=== PATIENT | female | born 1990 | race Caucasian/White ===

== ENCOUNTER 2018-06-28 16:38 | Outpatient (CLI) | payer OTHER ==
[2018-06-28 17:18] LABS: APPEARANCE,URINE CLEAR; BILIRUBIN,URINE NEGATIVE (NEGATIVE); COLOR,URINE YELLOW; GLUCOSE, URINE NEGATIVE (NEGATIVE); KETONES,URINE 20 mg/dL (NEGATIVE); LEUKOCYTE ESTERASE,URINE NEGATIVE (NEGATIVE); NITRITE,URINE NEGATIVE (NEGATIVE); PROTEIN,URINE NEGATIVE (NEGATIVE); URINE SPECIFIC GRAVITY 1.018; UROBILINOGEN,URINE NEGATIVE mg/dL (<2.0)
[2018-06-28 17:34] LABS: URINE AMPHETAMINES SCREEN NEGATIVE; URINE BARBITURATES SCREEN NEGATIVE; URINE BENZODIAZEPINES SCREEN NEGATIVE; URINE COCAINE SCREEN NEGATIVE; URINE MARIJUANA (THC) SCREEN NEGATIVE; URINE METHADONE SCREEN NEGATIVE; URINE PHENCYCLIDINE SCREEN NEGATIVE
--- NOTE | 2018-06-28 18:45 | Non Stress Test Report ---
Non Stress Test Datetime Report Generated by CPN: 06/28/2018 18:44 DEMOGRAPHIC EGA NST: 35.0 INDICATION Indication for Study: Other Indication for Study (NST) Other: LABOR CHECK MONITORING Monitor Explained: Monitor Explained; Test Explained; Patient Verbalized Understanding Time on Monitor: 06/28/2018 16:57 Time off Monitor: 06/28/2018 18:04 NST Duration: 67 NST INTERVENTIONS NST Interventions: PO Hydration; Reposition Patient BABY A: [id number] BABY A Movement : Present Contraction Frequency : irregular FHR Baseline : 145 Accelerations : 15X15 Decelerations : None Variability : Moderate 6-25bpm NST Review: Meets Criteria for Reactive NST NST Review and Verified By : JANIE Gorman Results: Reactive NST REPORT Report Trigger: Send Report
== END 2018-06-28 18:16 | disposition home or self-care (01) ==
LOC: LC 16:38
PROVIDERS: ATTEND Obstetrics & Gynecology
PROC: 4A1HXCZ Monitoring of Products of Conception, Cardiac Rate, External Approach (ICD-10-PCS; principal; 2018-06-28)
DX: Z36.89 Encounter for other specified antenatal screening (principal)
CPT/HCPCS: 59025; 80307; 81001; 84112

== ENCOUNTER 2018-07-01 16:47 | Outpatient (CLI) | payer OTHER ==
[2018-07-01 17:40] LABS: ABSOLUTE BASOPHILS # (AUTO) 0.1 10^3/uL (0.0-0.2); ABSOLUTE EOSINOPHILS # (AUTO) 0.1 10^3/uL (0.0-0.6); ABSOLUTE LYMPHOCYTES (AUTO) 1.6 10^3/uL (0.5-4.7); ABSOLUTE MONOCYTES (AUTO) 1.1 10^3/uL (0.1-1.4); ABSOLUTE NEUT (AUTO) 8.4 10^3/uL (1.7-8.2); BASOPHILS % (AUTO) 0.5 % (0-2); EOSINOPHILS % (AUTO) 0.6 % (0-6); HEMATOCRIT 29.1 % (36.0-47.0); HEMOGLOBIN 9.6 g/dL (12.0-15.5); LYMPHOCYTES % (AUTO) 14.7 % (13-45); MEAN CORPUSCULAR HEMOGLOBIN 25.3 pg (27.0-33.4); MEAN CORPUSCULAR HGB CONC 32.8 g/dL (32.0-36.0); MEAN CORPUSCULAR VOLUME 77 fl (80-97); MONOCYTES % (AUTO) 9.4 % (3-13); PLATELET COUNT 250 10^3/uL (150-450); RED BLOOD COUNT 3.78 10^6/uL (3.72-5.28); RED CELL DISTRIBUTION WIDTH 16.7 % (11.5-14.0); SEGMENTED NEUTROPHILS % (AUTO) 74.8 % (42-78); TOTAL CELLS COUNTED % (AUTO) 100 %; WHITE BLOOD COUNT 11.2 10^3/uL (4.0-10.5)
[2018-07-01 17:46] LABS: APPEARANCE,URINE CLEAR; BILIRUBIN,URINE NEGATIVE (NEGATIVE); COLOR,URINE YELLOW; GLUCOSE, URINE NEGATIVE (NEGATIVE); KETONES,URINE TRACE mg/dL (NEGATIVE); LEUKOCYTE ESTERASE,URINE NEGATIVE (NEGATIVE); NITRITE,URINE NEGATIVE (NEGATIVE); PROTEIN,URINE NEGATIVE (NEGATIVE); URINE SPECIFIC GRAVITY 1.015; UROBILINOGEN,URINE NEGATIVE mg/dL (<2.0)
[2018-07-01 17:54] LABS: ALANINE AMINOTRANSFERASE 28 U/L (9-52); ALBUMIN 3.6 g/dL (3.5-5.0); ALKALINE PHOSPHATASE 175 U/L (38-126); ANION GAP 10 (5-19); ASPARTATE AMINO TRANSFERASE 22 U/L (14-36); BILIRUBIN,DIRECT 0.1 mg/dL (0.0-0.4); BILIRUBIN,TOTAL 0.4 mg/dL (0.2-1.3); BLOOD UREA NITROGEN 10 mg/dL (7-20); CARBON DIOXIDE 19 mmol/L (22-30); CHLORIDE 108 mmol/L (98-107); GLUCOSE 72 mg/dL (75-110); POTASSIUM 3.9 mmol/L (3.6-5.0); SODIUM 136.7 mmol/L (137-145); TOTAL PROTEIN 6.7 g/dL (6.3-8.2); URIC ACID 3.7 mg/dL (2.5-6.2)
[2018-07-01 17:56] LABS: URINE AMPHETAMINES SCREEN NEGATIVE; URINE BARBITURATES SCREEN NEGATIVE; URINE BENZODIAZEPINES SCREEN NEGATIVE; URINE COCAINE SCREEN NEGATIVE; URINE MARIJUANA (THC) SCREEN NEGATIVE; URINE METHADONE SCREEN NEGATIVE; URINE PHENCYCLIDINE SCREEN NEGATIVE
[2018-07-01 18:00] LABS: UR PRO/CREAT RATIO RESULT 0.1 mg/mg (0.0-0.2); URINE CREATININE 81.5 mg/dL (16-327); URINE PROTEIN 11.1 mg/dL (<12)
--- NOTE | 2018-07-01 18:50 | Non Stress Test Report ---
Non Stress Test Datetime Report Generated by CPN: 07/01/2018 18:50 DEMOGRAPHIC EGA NST: 35.3 INDICATION Indication for Study: Ordered by Provider Indication for Study (NST) Other: lc for pih work up MONITORING Monitor Explained: Monitor Explained; Test Explained; Patient Verbalized Understanding Time on Monitor: 07/01/2018 17:00 Time off Monitor: 07/01/2018 18:30 NST Duration: 90 NST INTERVENTIONS NST Interventions: PO Hydration; Reposition Patient Physician Notified NST: Dr Younger BABY A: [id number] BABY A Movement : Present Contraction Frequency : rare FHR Baseline : 140 Accelerations : 15X15 Decelerations : None Variability : Moderate 6-25bpm NST Review: Meets Criteria for Reactive NST NST Review and Verified By : Suellen Bellavance RN NST Results: Reactive NST REPORT Report Trigger: Send Report
== END 2018-07-01 18:49 | disposition home or self-care (01) ==
LOC: LC 16:47
PROVIDERS: ATTEND Obstetrics & Gynecology
PROC: 4A1HXCZ Monitoring of Products of Conception, Cardiac Rate, External Approach (ICD-10-PCS; principal; 2018-07-01)
DX: O16.3 Unspecified maternal hypertension, third trimester (principal); Z3A.35 35 weeks gestation of pregnancy
CPT/HCPCS: 36415; 59025; 80053; 80307; 81001; 82570; 83615; 84156; 84550; 85025

== ENCOUNTER 2018-07-30 14:22 | Outpatient (CLI) | payer OTHER ==
[2018-07-30] MEDS ORDERED: ACETAMINOPHEN SOLN 325 MG/10.15 ML UDCUP PO ONE (14:50)
[2018-07-30] MEDS ORDERED: ACETAMINOPHEN 325 MG TABLET ONE (14:59)
[2018-07-30 15:14] LABS: APPEARANCE,URINE SLIGHTLY-CLOUDY; BILIRUBIN,URINE NEGATIVE (NEGATIVE); COLOR,URINE YELLOW; GLUCOSE, URINE NEGATIVE (NEGATIVE); KETONES,URINE NEGATIVE (NEGATIVE); LEUKOCYTE ESTERASE,URINE SMALL (NEGATIVE); NITRITE,URINE NEGATIVE (NEGATIVE); PROTEIN,URINE NEGATIVE (NEGATIVE); URINE SPECIFIC GRAVITY 1.017; UROBILINOGEN,URINE NEGATIVE mg/dL (<2.0)
[2018-07-30 15:33] LABS: ABSOLUTE EOSINOPHILS # (AUTO) 0.1 10^3/uL (0.0-0.6); ABSOLUTE LYMPHOCYTES (AUTO) 1.3 10^3/uL (0.5-4.7); ABSOLUTE MONOCYTES (AUTO) 0.8 10^3/uL (0.1-1.4); ABSOLUTE NEUT (AUTO) 6.6 10^3/uL (1.7-8.2); BASOPHILS % (AUTO) 0.3 % (0-2); EOSINOPHILS % (AUTO) 0.8 % (0-6); HEMATOCRIT 29.2 % (36.0-47.0); HEMOGLOBIN 9.7 g/dL (12.0-15.5); LYMPHOCYTES % (AUTO) 14.2 % (13-45); MEAN CORPUSCULAR HEMOGLOBIN 24.4 pg (27.0-33.4); MEAN CORPUSCULAR HGB CONC 33.1 g/dL (32.0-36.0); MEAN CORPUSCULAR VOLUME 74 fl (80-97); MONOCYTES % (AUTO) 9.2 % (3-13); PLATELET COUNT 217 10^3/uL (150-450); RED BLOOD COUNT 3.95 10^6/uL (3.72-5.28); RED CELL DISTRIBUTION WIDTH 17.7 % (11.5-14.0); SEGMENTED NEUTROPHILS % (AUTO) 75.5 % (42-78); TOTAL CELLS COUNTED % (AUTO) 100 %; WHITE BLOOD COUNT 8.8 10^3/uL (4.0-10.5)
[2018-07-30 15:34] LABS: URINE AMPHETAMINES SCREEN NEGATIVE; URINE BARBITURATES SCREEN NEGATIVE; URINE BENZODIAZEPINES SCREEN NEGATIVE; URINE COCAINE SCREEN NEGATIVE; URINE MARIJUANA (THC) SCREEN NEGATIVE; URINE METHADONE SCREEN NEGATIVE; URINE PHENCYCLIDINE SCREEN NEGATIVE
[2018-07-30 15:38] LABS: UR PRO/CREAT RATIO RESULT 0.2 mg/mg (0.0-0.2); URINE CREATININE 103.3 mg/dL (16-327); URINE PROTEIN 16.6 mg/dL (<12)
[2018-07-30 15:54] LABS: ALANINE AMINOTRANSFERASE 18 U/L (9-52); ALBUMIN 3.2 g/dL (3.5-5.0); ALKALINE PHOSPHATASE 228 U/L (38-126); ANION GAP 6 (5-19); ASPARTATE AMINO TRANSFERASE 17 U/L (14-36); BILIRUBIN,DIRECT 0.2 mg/dL (0.0-0.4); BILIRUBIN,TOTAL 0.4 mg/dL (0.2-1.3); BLOOD UREA NITROGEN 11 mg/dL (7-20); CALCIUM 9.6 mg/dL (8.4-10.2); CARBON DIOXIDE 22 mmol/L (22-30); CHLORIDE 108 mmol/L (98-107); GLUCOSE 75 mg/dL (75-110); SODIUM 136.4 mmol/L (137-145); TOTAL PROTEIN 6.4 g/dL (6.3-8.2); URIC ACID 4.6 mg/dL (2.5-6.2)
== END 2018-07-30 16:50 | disposition home or self-care (01) ==
LOC: LC 14:22
PROVIDERS: ATTEND Obstetrics & Gynecology
PROC: 4A1HXCZ Monitoring of Products of Conception, Cardiac Rate, External Approach (ICD-10-PCS; principal; 2018-07-30)
DX: O14.90 Unspecified pre-eclampsia, unspecified trimester (principal); Z3A.39 39 weeks gestation of pregnancy
CPT/HCPCS: 36415; 59025; 80053; 80307; 81005; 82570; 83615; 84156; 84550; 85025; 86592; 86850; 86900; 86901

== ENCOUNTER 2018-08-01 07:56 | Outpatient (CLI) | payer OTHER ==
--- NOTE | 2018-08-01 07:58 | Non Stress Test Report ---
Non Stress Test Datetime Report Generated by CPN: 08/01/2018 07:58 DEMOGRAPHIC EGA NST: 39.4 INDICATION Indication for Study: Ordered by Provider Indication for Study (NST) Other: pre eclampsia work up MONITORING Monitor Explained: Monitor Explained; Test Explained; Patient Verbalized Understanding Time on Monitor: 07/30/2018 14:13 Time off Monitor: 07/30/2018 16:12 NST Duration: 119 NST INTERVENTIONS NST Interventions: PO Hydration; Reposition Patient Physician Notified NST: A Deshpande CNM BABY A: [id number] Movement : Present Contraction Frequency : irr FHR Baseline : 135 Accelerations : 15X15 Decelerations : None Variability : Moderate 6-25bpm NST Review: Meets Criteria for Reactive NST NST Review and Verified By : JANIE Felix Results: Reactive NST REPORT Report Trigger: Send Report
--- NOTE | 2018-08-01 09:51 | Non Stress Test Report ---
Non Stress Test Datetime Report Generated by CPN: 08/01/2018 09:50 DEMOGRAPHIC EGA NST: 39.6 INDICATION Indication for Study: Other Indication for Study (NST) Other: lc VITAL SIGNS Temperature - NST: 97.6 RESP - NST: 16 MONITORING Monitor Explained: Monitor Explained; Test Explained; Patient Verbalized Understanding Time on Monitor: 08/01/2018 08:15 Time off Monitor: 08/01/2018 09:48 NST Duration: 93 NST INTERVENTIONS Physician Notified NST: Dr Shabbir BABY A Movement : Present Contraction Frequency : irreg FHR Baseline : 140 Accelerations : 15X15 Decelerations : None Variability : Moderate 6-25bpm NST Review: Meets Criteria for Reactive NST NST Review and Verified By : Suellen Chambers RN NST Results: Reactive NST REPORT Report Trigger: Send Report
[2018-08-01 10:11] LABS: URINE PROTEIN 13.4 mg/dL (<12)
[2018-08-01 10:15] LABS: 24 HOUR URINE PROTEIN RESULT 289 mg/day (42-225)
== END 2018-08-01 10:29 | disposition home or self-care (01) ==
LOC: LC 07:56
PROVIDERS: ATTEND Obstetrics & Gynecology
PROC: 4A1HXCZ Monitoring of Products of Conception, Cardiac Rate, External Approach (ICD-10-PCS; principal; 2018-08-01)
DX: O47.1 False labor at or after 37 completed weeks of gestation (principal); Z3A.39 39 weeks gestation of pregnancy
CPT/HCPCS: 59025; 84156

== ENCOUNTER 2018-08-03 19:59 | Inpatient (IN) | payer OTHER ==
[2018-08-03] MEDS ORDERED: ZOLPIDEM TARTRATE 5 MG TABLET PO PRN (20:24)
[2018-08-03] MEDS ORDERED: RINGERS SOLUTION,LACTATED 300 ML IV ONE (20:24)
[2018-08-03] MEDS ORDERED: MAG HYDROX/AL HYDROX/SIMETH SUSP 30 ML UDCUP PO PRN (20:24)
[2018-08-03] MEDS ORDERED: ACETAMINOPHEN 325 MG TABLET PO PRN (20:24)
[2018-08-03] MEDS ORDERED: DINOPROSTONE 10 MG VAGINAL INSERT.SR PV ONE (20:24)
[2018-08-03 21:06] LABS: ABSOLUTE EOSINOPHILS # (AUTO) 0.1 10^3/uL (0.0-0.6); ABSOLUTE LYMPHOCYTES (AUTO) 1.5 10^3/uL (0.5-4.7); ABSOLUTE NEUT (AUTO) 8.8 10^3/uL (1.7-8.2); BASOPHILS % (AUTO) 0.4 % (0-2); EOSINOPHILS % (AUTO) 0.9 % (0-6); HEMATOCRIT 29.1 % (36.0-47.0); HEMOGLOBIN 9.6 g/dL (12.0-15.5); LYMPHOCYTES % (AUTO) 12.8 % (13-45); MEAN CORPUSCULAR HEMOGLOBIN 24.5 pg (27.0-33.4); MEAN CORPUSCULAR VOLUME 74 fl (80-97); MONOCYTES % (AUTO) 8.4 % (3-13); PLATELET COUNT 228 10^3/uL (150-450); RED BLOOD COUNT 3.92 10^6/uL (3.72-5.28); RED CELL DISTRIBUTION WIDTH 17.8 % (11.5-14.0); SEGMENTED NEUTROPHILS % (AUTO) 77.5 % (42-78); TOTAL CELLS COUNTED % (AUTO) 100 %; WHITE BLOOD COUNT 11.3 10^3/uL (4.0-10.5)
[2018-08-03 21:07] LABS: APPEARANCE,URINE SLIGHTLY-CLOUDY; BILIRUBIN,URINE NEGATIVE (NEGATIVE); COLOR,URINE YELLOW; GLUCOSE, URINE NEGATIVE (NEGATIVE); KETONES,URINE NEGATIVE (NEGATIVE); LEUKOCYTE ESTERASE,URINE MODERATE (NEGATIVE); NITRITE,URINE NEGATIVE (NEGATIVE); PROTEIN,URINE NEGATIVE (NEGATIVE); URINE SPECIFIC GRAVITY 1.021
[2018-08-03 21:22] LABS: URINE AMPHETAMINES SCREEN NEGATIVE; URINE BARBITURATES SCREEN NEGATIVE; URINE BENZODIAZEPINES SCREEN NEGATIVE; URINE COCAINE SCREEN NEGATIVE; URINE MARIJUANA (THC) SCREEN NEGATIVE; URINE METHADONE SCREEN NEGATIVE; URINE PHENCYCLIDINE SCREEN NEGATIVE
[2018-08-03] MEDS ORDERED: MISOPROSTOL 0.2 MG TABLET ONE (21:42)
[2018-08-03] MEDS ORDERED: OXYTOCIN 10 UNIT/ML VIAL ONE (21:42)
[2018-08-03] MEDS ORDERED: DINOPROSTONE 10 MG VAGINAL INSERT.SR ONE (21:43)
[2018-08-03] MEDS ORDERED: LIDOCAINE 1% INJ-PF (10 MG/ML) 30 ML SDV ONE (21:43)
[2018-08-03] MEDS ORDERED: OXYTOCIN/NORMAL SALINE 20 UNIT/1,000 ML RTUINJ ONE (21:43)
--- NOTE | 2018-08-03 23:04 | Admission Physical ---
Datetime Report Generated by CPN: 08/03/2018 23:04 CURRENT ADMISSION Chief Complaint: Scheduled Induction of Labor Indication for Induction: Post Dates; Gestational HTN Admit Impression : Term, Intrauterine ; Intact Membranes; Induction of Labor Admit Plan: Admit to Unit; Initiate Labor Induction Protocol ALLERGIES Medication Allergies: Yes Medication Allergies: Sulfa (Sulfonamide Antibiotics) (08/03/2018) Latex: No Latex Allergies Food Allergies: N/A Environmental Allergies: N/A OBSTETRICAL HISTORY EDC: 08/02/2018 00:00 : 1 Para: 0 Term: 0 : 0 SAB: 0 IAB: 0 Ectopic: 0 Livin Cesareans: 0 VBACs: 0 Multiple Births: 0 Gestational Diabetes: Yes Rh Sensitization: No Incompetent Cervix: No ZACHERY: No Infertility: No ART Treatment: No Uterine Anomaly: No IUGR: No Hx Previous C/S: No Macrosomia: No Hx Loss/Stillborn: No PIH: No Hx : No Placenta Previa/Abruption: No Depression/PP Depression: No PTL/PROM: No Post Hemorrhage: No Current Procedures: Ultrasound; NST Obstetrical History Comments: G1- current, GDM diet controlled SEE RECORDS Alcohol: No Marijuana : No Cocaine: No Other Illicit Drugs: No Cigarettes: Never Smoker. [id number] MEDICAL HISTORY Diabetes: Yes Diabetes Type: Gestational Diabetes Blood Transfusion: No Pulmonary Disease (Asthma, TB): No Breast Disease: No Hypertension: Yes Retail Loan Officer Surgery: No Heart Disease: No Hosp/Surgery: Yes Autoimmune Disorder: No Anesthetic Complications: No Kidney Disease: Yes Abnormal Pap Smear: No Neuro/Epilepsy: No Psychiatric Disorders: No Other Medical Diseases: No Hepatitis/Liver Disease: No Significant Family History: No Varicosities/Phlebitis: No Trauma/Violence : No Thyroid Dysfunction: No Medical History Comments: Diet controlled GDM, ureters reimplanted at 4 years old, wisdom teeth removed. INFECTIOUS HISTORY Gonorrhea: No Genital Herpes: No Chlamydia: No Tuberculosis: No Syphilis: No Hepatitis: No HIV/AIDS Exposure: No Rash or Viral Illness: No HPV: No PHYSICAL EXAM General: Normal HEENT: Normal Neurologic: Normal Thyroid: Normal Heart: Normal Lungs: Normal Breast: Normal Back: Normal Abdomen: Normal Genitourinary Exam: Normal Extremities: Normal DTRs: Normal Pelvic Type: Adequate Vital Signs: Reviewed; Within Normal Limits VAGINAL EXAM Dilatation: 1 Effacement: 50 Station: -1 Contraction Comments: irregular MEMBRANES Membranes: Intact FETUS A EGA: 40.1 Monitoring: External US FHR- Baseline: 140s Variability: Moderate 6-25bpm Accelerations: 15X15 Decelerations: None FHR Category: Category I Admit Comment: Pt presented to L_D for a scheduled labor induction secondary to GHTN. There is also suspected macrosomia. She is GBS Negative. Cervidil placed at approx 2200. PLANS FOR LABOR AND DELIVERY Labor and Delivery: None Pain Management: Epidural Feeding Preference: Breast Benefit of Breast Feed Discussed: Yes Circumcision: N/A INFORMED CONSENT Signature: with User ID: [email or web address]
[2018-08-04] MEDS ORDERED: MAG HYDROX/AL HYDROX/SIMETH SUSP 30 ML UDCUP ONE ×3 (01:07→23:49)
[2018-08-04] MEDS ORDERED: MAG HYDROX/AL HYDROX/SIMETH SUSP 30 ML UDCUP PO PRN (11:59)
[2018-08-04] MEDS ORDERED: OXYTOCIN/NORMAL SALINE 20 UNIT/1,000 ML RTUINJ IV PRN (13:54)
[2018-08-04] MEDS: RINGERS SOLUTION,LACTATED 1,000 ML IV PRN (17:54)
[2018-08-05] MEDS: RINGERS SOLUTION,LACTATED 1,000 ML IV PRN (07:56)
[2018-08-05 10:27] LABS: HEMATOCRIT 29.5 % (36.0-47.0); HEMOGLOBIN 9.6 g/dL (12.0-15.5); MEAN CORPUSCULAR HGB CONC 32.6 g/dL (32.0-36.0); MEAN CORPUSCULAR VOLUME 74 fl (80-97); PLATELET COUNT 204 10^3/uL (150-450); RED CELL DISTRIBUTION WIDTH 17.8 % (11.5-14.0); WHITE BLOOD COUNT 11.1 10^3/uL (4.0-10.5)
[2018-08-05] MEDS ORDERED: FENTANYL CITRATE INJ/PF 100 MCG/2 ML AMPUL ONE (10:27)
[2018-08-05] MEDS ORDERED: EPHEDRINE SULFATE INJ 50 MG/1 ML AMPULE ONE (10:27)
[2018-08-05] MEDS ORDERED: FENTANYL/BUPIVACAINE/NS/PF 300 MCG/150 ML RTUINJ EPI ONE (10:27)
[2018-08-05] MEDS ORDERED: PHENYLEPHRINE HCL INJ/PF 10 MG/1 ML SDV ONE (10:27)
[2018-08-05] MEDS ORDERED: BUPIVACAINE HCL 0.25 % INJ/PF (2.5 MG/1 ML) 30 ML VIAL ONE (10:28)
[2018-08-05] MEDS ORDERED: LIDOCAINE 1.5%/EPINEPHRINE INJ 5 ML AMP ONE (10:28)
[2018-08-05] MEDS ORDERED: OXYTOCIN/NORMAL SALINE 20 UNIT/1,000 ML RTUINJ ONE (16:06)
[2018-08-05] MEDS ORDERED: PSEUDOEPHEDRINE HCL 30 MG TABLET PO PRN (21:38)
[2018-08-05] MEDS ORDERED: PROMETHAZINE HCL INJ 25 MG/1 ML VIAL IV PRN (21:38)
[2018-08-05] MEDS ORDERED: OXYTOCIN/NORMAL SALINE 20 UNIT/1,000 ML RTUINJ IV PRN (21:38)
[2018-08-05] MEDS ORDERED: DIBUCAINE 1% OINTMENT 56 GM TP PRN (21:38)
[2018-08-05] MEDS ORDERED: MAGNESIUM HYDROXIDE SUSP 30 ML UDCUP PO PRN (21:38)
[2018-08-05] MEDS ORDERED: MEASLES,MUMPS&RUBELLA VACC/PF 0.5 ML VIAL SUBCUT PRN (21:38)
[2018-08-05] MEDS ORDERED: DIPH/PERTUSS(ACELL)/TETANUS VAC/PF 0.5 ML SYR (>=10YO) IM PRN (21:38)
[2018-08-05] MEDS ORDERED: PROMETHAZINE HCL 25 MG TABLET PO PRN (21:38)
[2018-08-05] MEDS ORDERED: GLYCERIN/WITCH HAZEL LEAF 1 EACH MED..PAD TP PRN (21:38)
[2018-08-05] MEDS ORDERED: PROMETHAZINE HCL 25 MG SUPP.RECT PR PRN (21:38)
[2018-08-05] MEDS ORDERED: ACETAMINOPHEN 650 MG SUPP.RECT PR PRN (21:38)
[2018-08-05] MEDS ORDERED: ZOLPIDEM TARTRATE 5 MG TABLET PO PRN (21:38)
[2018-08-05] MEDS ORDERED: BENZOCAINE/MENTHOL AEROSOL SPRAY 56 ML TOP PRN (21:38)
[2018-08-05] MEDS ORDERED: ACETAMINOPHEN WITH CODEINE #3 TABLET PO PRN ×2 (21:38)
[2018-08-05] MEDS ORDERED: DIPHENHYDRAMINE HCL 25 MG CAPSULE PO PRN (21:38)
[2018-08-05] MEDS ORDERED: NA PHOS,M-B/NA PHOS,DI-BA (ADULT) 133 ML ENEMA PR PRN (21:38)
[2018-08-05] MEDS ORDERED: AMPICILLIN SOD/SULBACTAM 3 GM VIAL ONE (21:50)
[2018-08-05] MEDS ORDERED: IBUPROFEN 800 MG TABLET ONE (22:33)
[2018-08-05] MEDS: AMPICILLIN SOD/SULBACTAM 3 GM VIAL IV SCH (22:36)
--- NOTE | 2018-08-05 22:40 | Delivery Summary ---
Del Sum A-C Datetime Report Generated by CPN: 08/05/2018 22:40 DELIVERY PERSONNEL DELIVERY PERSONNEL: [id number] Delivery Doctor:: Mendy Shea MD Labor and Delivery Nurse:: Patricia Stubbs RNengraver copperplate Nurse:: Laura Toledo RN Threading Machine Setter/MICROBIOLOGY TEACHER: Margaretnatalia Partida, ST MATERNAL INFORMATION Delivery Anesthesia: Epidural Medications After Delivery: Pitocin Bolus-Please Comment; Pitocin Drip 20 Units/1000ml NSS Estimated Blood Loss (ml): 300 Maternal Complications: None LABOR SUMMARY EDC: 08/02/2018 00:00 No. Babies in Womb: 1 Attempted: No Labor Anesthesia: Epidural LABOR INFORMATION Reason for Induction: Chronic Primary/Essential HTN; Gestational Hypertension Onset of Labor: 08/05/2018 11:42 Complete Dilatation: 08/05/2018 19:00 Cervical Ripening Agents: Cervidil Oxytocin: Induction Group B Beta Strep: negative Antibiotics # of Doses: 0 Antibiotics Time of Last Dose: na Name of Antibiotic Given: na Steroids Given: None Reason Steroids Not Administered: Not Applicable MEMBRANES Membranes Rupture Method: Spontaneous Rupture of Membranes: 08/05/2018 09:37 Length of Rupture (hr): 11.68 Amniotic Fluid Color: Clear Amniotic Fluid Amount: Small Amniotic Fluid Odor: Normal STAGES OF LABOR Stage 1 hr: 7 Stage 1 min: 18 Stage 2 hr: 2 Stage 2 min: 18 Stage 3 hr: 0 Stage 3 min: 5 Total Time in Labor hr: 9 Total Time in Labor min: 41 VAGINAL DELIVERY Episiotomy: None Laceration #1: Vaginal Laceration Extension #1: First Degree Sponge Count Correct: Yes Sharps Count Correct: Yes CSECTION DELIVERY Primary Indication: N/A Secondary Indication: N/A CSection Incidence: N/A Labor: N/A Elective: N/A CSection Incision: N/A BABY A INFORMATION Delivery Date/Time: 08/05/2018 21:18 Method of Delivery: Vaginal Born in Route : No : N/A Forceps: N/A Vacuum Extraction: Successful Shoulder Dystocia : No ASSISTED DELIVERY BABY A Indication for Assisted Delivery: decelerations Catheter Prior to Procedure: Yes Station Vacuum/Forcep Apply: 2 Position Vacuum/Forcep Apply: Right Occipital Anterior Vacuum Number of Pulls: 3 Vacuum Number of PopOffs: 3 Vacuum Maximum Pressure Obtained: 500 Reduce Pressure btwn Ctx: Yes Vacuum Equity Research Analyst: kiwi PRESENTATION/POSITION BABY A Presentation: Cephalic Cephalic Presentation: Vertex Vertex Position: Right Occipital Anterior Breech Presentation: N/A PLACENTA INFORMATION BABY A Placenta Delivery Time : 08/05/2018 21:23 Placenta Method of Delivery: Spontaneous Placenta Status: Delivered SCORES BABY A Heart Rate 1 min: >100 bpm Resp Effort 1 min: Good Cry Reflex Irritability 1 min: Cough or Sneeze or Pulls Away Muscle Tone 1 min: Active Motion Color 1 min: Blue/Pale SCORE 1 MIN: 8 Heart Rate 5 min: >100 bpm Resp Effort 5 min: Good Cry Reflex Irritability 5 min: Cough or Sneeze or Pulls Away Muscle Tone 5 min: Active Motion Color 5 min: Body Encinal, Extremities Blue SCORE 5 MIN: 9 INFORMATION BABY A Gestational Age at Delivery: 40.3 Gestational Status: Full Term- 39- 40.6 Weeks Infant Outcome : Liveborn Infant Condition : Stable Infant Sex: Female IDENTIFICATION BABY A Infant Verification Date/Time: 08/05/2018 21:28 ID Band Number: [id number] Mother's Name Verified: Yes RN Verifying : Kaleigh, RN Additional Verifying Personnel: NHector, RN WEIGHT/LENGTH BABY A Infant Birthweight (gm): 4235 Infant Weight (lb): 9 Infant Weight (oz): 5 Length (in): 21.00 Length (cm): 53.34 CORD INFORMATION BABY A No. Cord Vessels: 3 Nuchal Cord : N/A Cord Blood Taken: Yes-For Eval (Mom's Blood Type - or O+) Infant Suction: Mouth; Nose ASSESSMENT BABY A Skin to Skin: Yes Skin to Skin Time (min): 120 BABY B INFORMATION : N/A SIGNATURES Signature: with User ID: [email or web address], Addendum/Amendment: kiwi applied x 3 Pop offs. reason: maternal fatigue
[2018-08-06] MEDS: IBUPROFEN 800 MG TABLET PO SCH ×4 (00:54→23:00)
[2018-08-06] MEDS: FAMOTIDINE 20 MG TABLET PO SCH ×3 (00:55→23:00)
[2018-08-06] MEDS: AMPICILLIN SOD/SULBACTAM 3 GM VIAL IV SCH ×2 (05:38→13:59)
[2018-08-06 07:39] LABS: HEMATOCRIT 24.3 % (36.0-47.0); MEAN CORPUSCULAR HGB CONC 32.4 g/dL (32.0-36.0); MEAN CORPUSCULAR VOLUME 74 fl (80-97); PLATELET COUNT 204 10^3/uL (150-450); RED BLOOD COUNT 3.29 10^6/uL (3.72-5.28); RED CELL DISTRIBUTION WIDTH 18.1 % (11.5-14.0); WHITE BLOOD COUNT 22.2 10^3/uL (4.0-10.5)
[2018-08-06 08:22] LABS: HEMOGLOBIN 7.9 g/dL (12.0-15.5)
--- NOTE | 2018-08-06 09:33 | PDOC PROGRESS REPORT ---
Subjective-OB Progress Note for:: 08/06/18 Subjective: PPD 1. Pt doing well, no concerns. She reports light bleeding, regular diet and voiding without difficulty. Physical Exam (OB) Vital Signs: Temp Pulse Resp BP Pulse Ox 98.6 F 83 16 119/72 99 08/06/18 07:17 08/06/18 07:17 08/06/18 07:17 08/06/18 07:17 08/06/18 07:17 Intake & Output 08/05/18 08/06/18 08/07/18 06:59 06:59 06:59 Intake Total 1000 Balance 1000 - PIH/Pre-Eclampsia DTR's: 1 + Headache: Absent Epigastric Pain: No Visual Changes: No - Lochia Lochia Amount: Scant < 10 ml Lochia Color: Rubra/Red - Abdomen Description: Soft, Round Fundal Description: Firm Fundal Height: u/u - u/2 Objective-Diagnostic Laboratory: 08/06/18 06:51 08/05/18 08/06/18 10:15 06:51 WBC 11.1 H 22.2 H RBC 4.00 3.29 L Hgb 9.6 L 7.9 L Hct 29.5 L 24.3 L MCV 74 L 74 L MCH 24.0 L 24.0 L MCHC 32.6 32.4 RDW 17.8 H 18.1 H Plt Count 204 204 Assessment and Plan(PN) - Assessment and Plan (1) Gestational diabetes mellitus, antepartum Qualifiers: Gestational diabetes mellitus control: oral hypoglycemic-controlled Qualified Code(s): O24.415 - Gestational diabetes mellitus in , controlled by oral hypoglycemic drugs Is this a current diagnosis for this admission?: Yes (2) Gestational hypertension Qualifiers: Trimester: unspecified trimester Qualified Code(s): O13.9 - Gestational [-induced] hypertension without significant proteinuria, unspecified trimester Is this a current diagnosis for this admission?: Yes (3) Vacuum extractor delivery, delivered Is this a current diagnosis for this admission?: Yes - Time Spent with Patient Time with patient: Less than 15 minutes Medications reviewed and adjusted accordingly: Yes - Disposition Anticipated Discharge: Home Within: within 24 hours
[2018-08-06] MEDS: SENNOSIDES/DOCUSATE 8.6-50 MG 1 EACH TABLET PO SCH (09:42)
[2018-08-06] MEDS: DOCUSATE SODIUM 100 MG CAPSULE PO SCH ×2 (09:42→17:59)
[2018-08-06] MEDS ORDERED: FERROUS SULFATE 325 MG TABLET PO SCH (10:00)
[2018-08-06] MEDS ORDERED: PRENATAL VITAMIN W DHA CAPSULE PO SCH (10:00)
[2018-08-06] MEDS: FERROUS SULFATE 325 MG TABLET PO SCH ×3 (14:08→17:59)
[2018-08-06] MEDS: ASCORBIC ACID 500 MG TABLET PO SCH ×2 (14:09→17:59)
[2018-08-07] MEDS: IBUPROFEN 800 MG TABLET PO SCH ×2 (06:23→14:27)
[2018-08-07 07:33] LABS: ABSOLUTE BASOPHILS # (AUTO) 0.1 10^3/uL (0.0-0.2); ABSOLUTE EOSINOPHILS # (AUTO) 0.3 10^3/uL (0.0-0.6); ABSOLUTE LYMPHOCYTES (AUTO) 2.1 10^3/uL (0.5-4.7); ABSOLUTE MONOCYTES (AUTO) 1.2 10^3/uL (0.1-1.4); ABSOLUTE NEUT (AUTO) 13.8 10^3/uL (1.7-8.2); BASOPHILS % (AUTO) 0.4 % (0-2); EOSINOPHILS % (AUTO) 1.4 % (0-6); HEMATOCRIT 25.1 % (36.0-47.0); HEMOGLOBIN 8.1 g/dL (12.0-15.5); LYMPHOCYTES % (AUTO) 12.2 % (13-45); MEAN CORPUSCULAR HEMOGLOBIN 24.2 pg (27.0-33.4); MEAN CORPUSCULAR HGB CONC 32.3 g/dL (32.0-36.0); MEAN CORPUSCULAR VOLUME 75 fl (80-97); MONOCYTES % (AUTO) 7.1 % (3-13); PLATELET COUNT 238 10^3/uL (150-450); RED BLOOD COUNT 3.36 10^6/uL (3.72-5.28); RED CELL DISTRIBUTION WIDTH 18.1 % (11.5-14.0); SEGMENTED NEUTROPHILS % (AUTO) 78.9 % (42-78); TOTAL CELLS COUNTED % (AUTO) 100 %; WHITE BLOOD COUNT 17.5 10^3/uL (4.0-10.5)
--- NOTE | 2018-08-07 08:23 | PDOC DISCHARGE SUMMARY ---
Final Diagnosis Discharge Date: 08/07/18 - Final Diagnosis (1) Gestational diabetes mellitus, antepartum Is this a current diagnosis for this admission?: Yes (2) Gestational hypertension Is this a current diagnosis for this admission?: Yes (3) Vacuum extractor delivery, delivered Is this a current diagnosis for this admission?: Yes Discharge Data - Discharge Medication Home Medications: Pnv No.95/Ferrous Fum/Folic AC [ Vitamin Tablet] 1 tab PO DAILY 06/28/18 Reason(s) for Admission: Induction of Labor, PIH, Gestional Diabetes Procedures: NST Intrapartum Procedure(s): Vacuum Extraction Complication(s): Laceration-Vaginal Laceration-Degree: 1st - Diagnosis Test Laboratory: Temp Pulse Resp BP Pulse Ox 98.0 F 99 18 134/70 H 97 08/06/18 20:51 08/06/18 20:51 08/06/18 20:51 08/06/18 20:51 08/06/18 20:51 08/03/18 08/03/18 08/05/18 20:44 20:44 10:15 RBC 3.92 4.00 Hgb 9.6 L 9.6 L Hct 29.1 L 29.5 L Urine Opiates Screen NEGATIVE 08/06/18 08/07/18 06:51 07:00 RBC 3.29 L 3.36 L Hgb 7.9 L 8.1 L Hct 24.3 L 25.1 L Urine Opiates Screen - Discharge information/Instructions Discharge Activity: Balance Activity w/Rest, Pelvic Rest Discharge Diet: Regular Disposition: HOME, SELF-CARE Follow up with: [facility] in: 4, Weeks
[2018-08-07] MEDS: ASCORBIC ACID 500 MG TABLET PO SCH (10:32)
[2018-08-07] MEDS: FAMOTIDINE 20 MG TABLET PO SCH (10:32)
[2018-08-07] MEDS: FERROUS SULFATE 325 MG TABLET PO SCH ×3 (10:33→17:23)
[2018-08-07] MEDS: DOCUSATE SODIUM 100 MG CAPSULE PO SCH (10:33)
[2018-08-07 10:47] VITALS: BP 128/81
[2018-08-07] MEDS: SENNOSIDES/DOCUSATE 8.6-50 MG 1 EACH TABLET PO SCH (11:50)
== END 2018-08-07 18:55 | disposition home or self-care (01) | DRG 807 ==
LOC: LR 19:59 → 2S 08-05 23:55
PROVIDERS: ADMIT Obstetrics & Gynecology; ATTEND Obstetrics & Gynecology
PROC: 10D07Z6 Extraction of Products of Conception, Vacuum, Via Natural or Artificial Opening (ICD-10-PCS; principal; 2018-08-05)
PROC: 0HQ9XZZ Repair Perineum Skin, External Approach (ICD-10-PCS; 2018-08-05)
DX: O48.0 Post-term pregnancy (principal); Z37.0 Single live birth; O13.4 Gestational [pregnancy-induced] hypertension without significant proteinuria, complicating childbirth; O24.420 Gestational diabetes mellitus in childbirth, diet controlled; O70.0 First degree perineal laceration during delivery; O76 Abnormality in fetal heart rate and rhythm complicating labor and delivery; Z3A.40 40 weeks gestation of pregnancy
CPT/HCPCS: 36415; 80307; 81005; 85025; 85027; 86592; 86850; 86900; 86901; 94760; J0295; J2370; J2590; J3010; J3490

== ENCOUNTER 2020-05-04 17:53 | Inpatient (IN) | payer OTHER ==
[2020-05-04] MEDS ORDERED: RINGERS SOLUTION,LACTATED 300 ML IV ONE (18:09)
[2020-05-04] MEDS ORDERED: ZOLPIDEM TARTRATE 5 MG TABLET PO PRN (18:09)
[2020-05-04] MEDS ORDERED: OXYTOCIN/0.9 % SODIUM CHLORIDE 30 UNIT/500 ML RTUINJ IV PRN (18:09)
[2020-05-04] MEDS ORDERED: ACETAMINOPHEN 325 MG TABLET PO PRN (18:09)
[2020-05-04] MEDS ORDERED: DINOPROSTONE 10 MG VAGINAL INSERT.SR PV ONE (18:09)
--- NOTE | 2020-05-04 18:29 | Admission Physical ---
Datetime Report Generated by CPN: 05/04/2020 18:29 CURRENT ADMISSION Chief Complaint: Scheduled Induction of Labor Indication for Induction: Maternal Diabetes Admit Impression : Term, Intrauterine ; Induction of Labor Admit Plan: Admit to Unit; Initiate Labor Induction Protocol ALLERGIES Medication Allergies: Yes Medication Allergies: Sulfa (Sulfonamide Antibiotics) (08/03/2018) Latex: No Latex Allergies OBSTETRICAL HISTORY EDC: 05/11/2020 00:00 : 2 Para: 1 Term: 1 : 0 SAB: 0 IAB: 0 Ectopic: 0 Livin Cesareans: 0 VBACs: 0 Multiple Births: 0 Gestational Diabetes: No Rh Sensitization: No Incompetent Cervix: No ZACHERY: No Infertility: No ART Treatment: No Uterine Anomaly: No IUGR: No Hx Previous C/S: No Macrosomia: No Hx Loss/Stillborn: No PIH: No Hx : No Placenta Previa/Abruption: No Depression/PP Depression: No PTL/PROM: No Post Hemorrhage: No MEDICAL HISTORY Diabetes: No Blood Transfusion: No Pulmonary Disease (Asthma, TB): No Breast Disease: No 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 Heart Disease: No Hosp/Surgery: No Autoimmune Disorder: No Anesthetic Complications: No Kidney Disease: No Abnormal Pap Smear: No Neuro/Epilepsy: No Psychiatric Disorders: No Other Medical Diseases: No Hepatitis/Liver Disease: No Significant Family History: No Varicosities/Phlebitis: No Trauma/Violence : No Thyroid Dysfunction: No INFECTIOUS HISTORY Gonorrhea: No Genital Herpes: No Chlamydia: No Tuberculosis: No Syphilis: No Hepatitis: No HIV/AIDS Exposure: No Rash or Viral Illness: No HPV: No PHYSICAL EXAM General: Normal HEENT: Normal Neurologic: Normal Thyroid: Normal Heart: Normal Lungs: Normal Breast: Deferred Back: Normal Abdomen: Normal Genitourinary Exam: Normal Extremities: Normal DTRs: Normal Pelvic Type: Adequate Vital Signs: Reviewed MEMBRANES Pooling: Negative Membranes: Intact FETUS A EGA: 39.0 Monitoring: External US FHR- Baseline: 120 Variability: Moderate 6-25bpm Decelerations: None FHR Category: Category I Estimated Weight (gm): 4000 Presentation: Vertex Admit Comment: admit for induction INFORMED CONSENT Signature: with User ID: [email or web address]
[2020-05-04] MEDS ORDERED: DINOPROSTONE 10 MG VAGINAL INSERT.SR ONE (18:48)
[2020-05-04 18:51] LABS: HEMATOCRIT 27.4 % (36.0-47.0); HEMOGLOBIN 9.1 g/dL (12.0-15.5); MEAN CORPUSCULAR HEMOGLOBIN 24.3 pg (27.0-33.4); MEAN CORPUSCULAR HGB CONC 33.3 g/dL (32.0-36.0); MEAN CORPUSCULAR VOLUME 73 fl (80-97); PLATELET COUNT 269 10^3/uL (150-450); RED BLOOD COUNT 3.76 10^6/uL (3.72-5.28); WHITE BLOOD COUNT 8.9 10^3/uL (4.0-10.5)
[2020-05-04] MEDS ORDERED: MAG HYDROX/AL HYDROX/SIMETH SUSP 30 ML UDCUP ONE (19:31)
[2020-05-04] MEDS: MAG HYDROX/AL HYDROX/SIMETH SUSP 30 ML UDCUP PO PRN (19:34)
[2020-05-04] MEDS: RINGERS SOLUTION,LACTATED 1,000 ML IV PRN ×2 (19:34→21:46)
[2020-05-04 19:44] LABS: APPEARANCE,URINE CLOUDY; BILIRUBIN,URINE NEGATIVE (NEGATIVE); COLOR,URINE YELLOW; GLUCOSE, URINE NEGATIVE (NEGATIVE); KETONES,URINE NEGATIVE (NEGATIVE); LEUKOCYTE ESTERASE,URINE LARGE (NEGATIVE); NITRITE,URINE NEGATIVE (NEGATIVE); PROTEIN,URINE NEGATIVE (NEGATIVE); URINE SPECIFIC GRAVITY 1.012; UROBILINOGEN,URINE NEGATIVE mg/dL (<2.0)
[2020-05-04 19:57] LABS: URINE AMPHETAMINES SCREEN NEGATIVE; URINE BARBITURATES SCREEN NEGATIVE; URINE BENZODIAZEPINES SCREEN NEGATIVE; URINE COCAINE SCREEN NEGATIVE; URINE MARIJUANA (THC) SCREEN NEGATIVE; URINE METHADONE SCREEN NEGATIVE; URINE PHENCYCLIDINE SCREEN NEGATIVE
[2020-05-04] MEDS ORDERED: ZOLPIDEM TARTRATE 5 MG TABLET ONE (21:48)
[2020-05-05] MEDS ORDERED: OXYTOCIN 10 UNIT/ML VIAL ONE ×2 (08:07→18:21)
[2020-05-05] MEDS ORDERED: LIDOCAINE 1% INJ-PF (10 MG/ML) 30 ML SDV ONE (08:07)
[2020-05-05] MEDS ORDERED: OXYTOCIN/0.9 % SODIUM CHLORIDE 30 UNIT/500 ML RTUINJ ONE ×2 (08:07→18:22)
[2020-05-05] MEDS ORDERED: MISOPROSTOL 0.2 MG TABLET ONE (08:07)
[2020-05-05] MEDS: RINGERS SOLUTION,LACTATED 1,000 ML IV PRN ×3 (09:18→22:12)
--- NOTE | 2020-05-05 09:39 | Warning Signs in Babies ---
VOD Warning Signs Datetime Report Generated by [facility]: 05/05/2020 09:39 VOD#608 -Warning Signs in Babies: Viewed with Parent(s)/Family (05/05/2020 09:38:Flaco Arthur RN)
[2020-05-05] MEDS ORDERED: MAG HYDROX/AL HYDROX/SIMETH SUSP 30 ML UDCUP ONE (11:05)
[2020-05-05] MEDS: MAG HYDROX/AL HYDROX/SIMETH SUSP 30 ML UDCUP PO PRN (11:06)
[2020-05-05] MEDS ORDERED: CEFAZOLIN 2 GM/D5W RTU 2 GM/50 ML RTUPB IV ONE (18:10)
[2020-05-05] MEDS ORDERED: CITRIC ACID/SODIUM CITRATE ORAL SOLN 15 ML UDCUP ONE (18:10)
[2020-05-05] MEDS ORDERED: PHENYLEPHRINE HCL INJ/PF 10 MG/1 ML SDV ONE (18:21)
[2020-05-05] MEDS ORDERED: FENTANYL CITRATE INJ/PF 100 MCG/2 ML AMPUL ONE (18:21)
[2020-05-05] MEDS ORDERED: GLYCOPYRROLATE INJ 0.4 MG/2 ML VIAL ONE (18:21)
[2020-05-05] MEDS ORDERED: KETOROLAC TROMETHAMINE INJ/PF 30 MG/1 ML SDV ONE (18:21)
[2020-05-05] MEDS ORDERED: EPHEDRINE SULFATE INJ 50 MG/1 ML AMPULE ONE (18:22)
[2020-05-05] MEDS ORDERED: MIDAZOLAM 2 MG/2 ML INJ ONE (18:22)
[2020-05-05] MEDS ORDERED: ONDANSETRON HCL INJ/PF 4 MG/2 ML SDV ONE (18:22)
[2020-05-05] MEDS ORDERED: ACETAMINOPHEN 1,000 MG/100 ML RTUPB IV ONE (18:22)
[2020-05-05] MEDS ORDERED: OXYTOCIN/0.9 % SODIUM CHLORIDE 30 UNIT/500 ML RTUINJ IV PRN (19:34)
[2020-05-05] MEDS ORDERED: OXYCODONE-ACETAMINOPHEN 5-325 MG TABLET PO PRN (19:34)
[2020-05-05] MEDS ORDERED: RINGERS SOLUTION,LACTATED 1,000 ML IV PRN (19:34)
[2020-05-05] MEDS ORDERED: MORPHINE SULFATE 10 MG/ML INJ IV PRN (19:34)
[2020-05-05] MEDS ORDERED: SIMETHICONE 80 MG TAB.CHEW PO PRN (19:34)
[2020-05-05] MEDS ORDERED: MEASLES,MUMPS&RUBELLA VACC/PF 0.5 ML VIAL SUBCUT PRN (19:34)
[2020-05-05] MEDS ORDERED: ACETAMINOPHEN 1,000 MG/100 ML RTUPB IV PRN (19:34)
[2020-05-05] MEDS ORDERED: PROMETHAZINE HCL INJ 25 MG/1 ML VIAL IV PRN (19:34)
[2020-05-05] MEDS ORDERED: DIPH/PERTUSS(ACELL)/TETANUS VAC/PF 0.5 ML SYR (>=10YO) IM PRN (19:34)
[2020-05-05] MEDS ORDERED: ACETAMINOPHEN 325 MG TABLET PO PRN (19:34)
--- NOTE | 2020-05-05 19:40 | Operative Report ---
Operative Report DATE OF SURGERY: 05/05/20 PREOPERATIVE DIAGNOSIS: IUP at 39 weeks and 3 days, gestational diabetes, macro somia, failed induction POSTOPERATIVE DIAGNOSIS: Same OPERATION: Primary low transverse hysterotomy section SURGEON: MICHELLE HELTON ANESTHESIA: Spinal COMPLICATIONS: None ESTIMATED BLOOD LOSS: 800 cc INTRAOPERATIVE FINDINGS: Male cephalic presentation Apgars of 8 and 9 weight 10 pounds 0 ounces PROCEDURE: PROCEDURE IN DETAIL: The patient was taken to the operating room, prepared and draped in a normal sterile fashion in a supine position with a leftward tilt. A transverse skin incision was made with a scalpel and carried through to the underlying layer of fascia with the same scalpel. The fascia was excised in the midline and extended laterally with Emi. The fascia was then dissected from the rectus muscle sharply with Emi and the rectus muscle was divided and the peritoneal cavity was entered sharply with the same Metzenbaum. With good visualization of the bladder and the uterus the bladder blade was inserted. The hysterotomy was nicked with a scalpel and extended laterally with surgeon finger fraction. The was then delivered atraumatically. The nose and mouth were suctioned with a suction bulb, the cord was clamped and cut and handed off to awaiting pediatricians. Cord blood was collected. The placenta was removed manually. The uterus was exteriorized and cleared of clots and debris. The hysterotomy was closed with 0 Monocryl in a running, locked fashion. A second layer of the same suture was used to imbricate to ensure hemostasis. The uterus was returned to the abdomen and peritoneal cavity was cleared of clots and debris. The rectus muscle and peritoneum were repaired with mattress stitch of 2-0 Chromic. The fascia was closed with 0-Vicryl. The subcutaneous layer was closed with plain catgut and the skin was closed with 4-0 Vicryl. The patient tolerated the procedure well. Sponge, lap, and needle counts correct x2 and the patient was taken to recovery in stable condition.
--- NOTE | 2020-05-05 20:02 | Delivery Summary ---
Del Sum A-C Datetime Report Generated by CPN: 05/05/2020 20:02 DELIVERY PERSONNEL DELIVERY PERSONNEL: [id number] Delivery Doctor:: Mendy Shea MD TRENCH DIGGER:: Sixto Chen, TRENCH DIGGER Wind Plant Manager:: Flaco Arthur RN Commutator Tester:: Dr. Gonzalez Nurse Practitioner:: CHERRIE De La Paz Nursery Nurse:: Flaco Arthur RN Water Taxi Boat Mate/RESIDENTIAL SALES EXECUTIVE: Sarah Mayberry CST Water Taxi Boat Mate/RESIDENTIAL SALES EXECUTIVE: Angely Cohen, CUSTOMS AGENT MATERNAL INFORMATION Delivery Anesthesia: Spinal Medications After Delivery: Pitocin 30 Units in 500ml NS/D5W Maternal Complications: None (Annotations: Data stored by [facility] on behalf of user) LABOR SUMMARY EDC: 05/11/2020 00:00 Attempted: No Labor Anesthesia: Intrathecal LABOR INFORMATION Reason for Induction: Chronic Primary/Essential HTN; Maternal Diabetes Onset of Labor: 05/05/2020 16:41 Cervical Ripening Agents: Cervidil Oxytocin: Induction Group B Beta Strep: negative Steroids Given: None Reason Steroids Not Administered: Not Applicable MEMBRANES Membranes Rupture Method: Artificial Rupture of Membranes: 05/05/2020 16:43 Length of Rupture (hr): 2.35 Amniotic Fluid Color: Clear Amniotic Fluid Amount: Moderate Amniotic Fluid Odor: Normal STAGES OF LABOR Stage 3 hr: 0 Stage 3 min: 0 Total Time in Labor hr: 2 Total Time in Labor min: 23 VAGINAL DELIVERY Episiotomy: None Laceration #1: None Laceration Extension #1: N/A Laceration Repair: Not Applicable Sponge Count Correct: N/A Sharps Count Correct: N/A CSECTION DELIVERY Primary Indication: Prolonged Latent Phase Secondary Indication: Nonreassuring Status CSection Urgency: Non-Scheduled CSection Incidence: Primary Labor: N/A Elective: N/A CSection Incision: Lower Uterine Transverse BABY A INFORMATION Infant Delivery Date/Time: 05/05/2020 19:04 Method of Delivery: Nurse Controlled Delivery: No Born in Route : No : N/A Forceps: N/A Vacuum Extraction: N/A Shoulder Dystocia : No PRESENTATION/POSITION BABY A Presentation: Cephalic Cephalic Presentation: Vertex Breech Presentation: N/A PLACENTA INFORMATION BABY A Placenta Delivery Time : 05/05/2020 19:04 Placenta Method of Delivery: Manual Removal Placenta Status: Delivered INFANT INFORMATION BABY A Gestational Age at Delivery: 39.1 Gestational Status: Full Term- 39- 40.6 Weeks Outcome : Liveborn Infant Condition : Stable Infant Sex: Male IDENTIFICATION BABY A Verification Date/Time: 05/05/2020 19:35 ID Band Number: [id number] Mother's Name Verified: Yes RN Verifying Infant: D. Rosaavance, RN WEIGHT/LENGTH BABY A Birthweight (gm): 4540 Infant Weight (lb): 10 Infant Weight (oz): 0 Infant Length (in): 22.00 Infant Length (cm): 55.88 CORD INFORMATION BABY A No. Cord Vessels: 3 Nuchal Cord : N/A Cord Blood Taken: Yes-For Eval (Mom's Blood Type - or O+) Suction: Mouth ASSESSMENT BABY A Transferred To: [facility] BABY B INFORMATION : N/A
--- NOTE | 2020-05-05 20:02 | Birth Certificate Data ---
Cert Data Datetime Report Generated by CPN: 05/05/2020 20:02 CERTIFICATE DATA Delivery Provider: Mendy Shea MD (05/05/2020 18:19:Rosa Cerda RN) 47a. Care: Yes (05/04/2020 13:36:Prabha Benoit RN) 47b. Date of First Visit: 11/02/2019 00:00 (05/04/2020 13:36:Prabha Benoit RN) 47c. Date of Last Visit: 05/02/2020 00:00 (05/04/2020 13:36:Prabha Benoit RN) 47d. Number of Visits: 14 (05/04/2020 13:36:Prabha Benoit RN) 48a. Number of Prev Live Births: 1 (05/04/2020 13:36:Prabha Benoit RN) 48b. Now Livin (05/04/2020 13:36:Prabha Benoit RN) 48c. Live Births Now : 0 (05/04/2020 13:36:QS system process) 48d. Date of Last Live : 08/05/2018 00:00 (05/04/2020 13:36:Prabha Benoit RN) 48e. Losses: 0 (05/04/2020 13:36:Prabha Benoit RN) RISK FACTORS IN THIS 49a. Diabetes: Yes (05/04/2020 13:36:Dahlia Moreno RN) Type of Diabetes: Gestational Diabetes (05/04/2020 13:36:Dahlia Moreno RN) 49b. Hypertension: Yes (05/04/2020 13:36:Dahlia Moreno RN) Type of Hypertension: Chronic (05/04/2020 13:36:Dahlia Moreno RN) 49c. Previous Births: 0 (05/04/2020 13:36:Prabha Benoit RN) 49d. Stillborns: No (05/04/2020 13:36:Dahlia Moreno RN) 49d. IUGR: No (05/04/2020 13:36:Dahlia Moreno RN) 49e. Infertility Treatment: No (05/04/2020 13:36:Dahlia Moreno RN) 49f. Previous Cesareans: 0 (05/04/2020 13:36:Prabha Benoit RN) Mother's Height 50b. Height Inches: 67 (05/04/2020 18:15:QS system process) Mother's Weight 51a. Pre- Weight (lbs): 122 (05/04/2020 13:36:Prabha Benoit RN) 51b. Weight at Delivery (lbs): 233 (05/04/2020 18:15:QS system process) 52. Dt Last Normal Menses Began: 08/05/2019 00:00 (05/04/2020 13:36:Prabha Benoit RN) Infections Present/Treated 53a. Gonorrhea: No (05/04/2020 13:36:Dahlia Moreno RN) Results this Hospital Visit : Negative (05/04/2020 13:36:Prabha Benoit RN) 53b. Syphilis: No (05/04/2020 13:36:Dahlia Moreno RN) 53c. Chlamydia: No (05/04/2020 13:36:Dahlia Moreno RN) Results this Hospital Visit: Negative (05/04/2020 13:36:Prabha Benoit RN) 53d. Hepatitis B: No (05/04/2020 13:36:Dahlia Moreno RN) Results this Hospital Visit: Negative (05/04/2020 13:36:Prabha Benoit RN) 53e. Hepatitis C: Negative (05/04/2020 13:36:Prabha Benoit RN) 53h. Mother Tested for HBsAG: Yes (05/04/2020 13:36:Prabha Benoit RN) 53i. Date Tested: 11/02/2019 00:00 (05/04/2020 13:36:Prabha Benoit RN) 53j. Test Result: Negative (05/04/2020 13:36:Prabha Benoit RN) Obstetric Procedures 54a, b, c. Obstetric Procedures: Ultrasound; NST (05/04/2020 13:36:Dahlia Moreno RN) Cigarette Smoking Cigarette Smoking: Never Smoker. [id number] (05/04/2020 13:36:Dahlia Moreno RN) 55a. 3 Months Before Preg - Ci (05/04/2020 13:36:Dahlia Moreno RN) 55a. Packs: 0 (05/04/2020 13:36:Dahlia Moreno RN) 55b. 1st Trimester of Preg- Ci (05/04/2020 13:36:Dahlia Moreno RN) 55b. Packs: 0 (05/04/2020 13:36:Dahlia Moreno RN) 55c. 2nd Trimester of Preg- Ci (05/04/2020 13:36:Dahlia Moreno RN) 55c. Packs: 0 (05/04/2020 13:36:Dahlia Moreno RN) 55d. 3rd Trimester of Preg- Ci (05/04/2020 13:36:Dahlia Moreno RN) 55d. Packs: 0 (05/04/2020 13:36:Dahlia Moreno RN) Onset of Labor 56a. PROM >12 Hrs: 2.35 (05/04/2020 13:36:QS system process) 56b. Precipitous Labor <3 Hrs: 2 (05/04/2020 13:36:QS system process) 56c. Prolonged Labor > 20 Hrs: 2 (05/04/2020 13:36:QS system process) 57a. Induction of Labor: Induction (05/04/2020 13:36:PIPER Tian) 57a. Induction of Labor: Cervidil (05/05/2020 06:51:PIPER Tian) 57c. Non-Vertex Presentation A: Vertex (05/04/2020 13:36:Kenya Rucker RN) 57d. Steroids - Lung Mat: None (05/04/2020 13:36:Flaco Arthur RN) 57d. Steroids - Lung Mat: Not Applicable (05/04/2020 13:36:Flaco Arthur RN) 57f. Mat [place] or Temp >100.4: 99.1 (05/04/2020 13:36:PIPER Tian) 57g. Moderate/Heavy Meconium: Clear (05/05/2020 16:43:Flaco Arthur RN) 57h. Intolerance of Labor: Prolonged Latent Phase (05/04/2020 13:36:PIPER Tian) : Nonreassuring Status (05/04/2020 13:36:PIPER Tian) 57i. Epidural/Spinal Anesthesia: Intrathecal (05/04/2020 13:36:Flaco Arthur RN) Method of Delivery 58a. Forceps - Unsuccessful A: N/A (05/04/2020 13:36:Flaco Arthur RN) 58b. Vacuum - Unsuccessful A: N/A (05/04/2020 13:36:Flaco Arthur RN) 58c. Presentation at 58c. Presentation at - A : Vertex (05/04/2020 13:36:Kenya Rucker RN) 58c. Presentation at - A : N/A (05/04/2020 13:36:Kenya Rucker RN) 58c. Presentation at - A : Cephalic (05/05/2020 09:27:Flaco Arthur RN) Final Route and Method of Del 58d. Baby A Route/Delivery: (05/04/2020 13:36:Flaco Arthur RN) 58e. Trial of Labor Attempted: No (05/04/2020 13:36:Flaco Arhtur RN) 58e. Trial of Labor Attempted A: N/A (05/04/2020 13:36:Flaco Arthur RN) 58e. Trial of Labor Attempted B: N/A (05/04/2020 13:36:Flaco Arthur RN) Maternal Morbidity 59b. 3rd or 4th Degree Lacs: None (05/04/2020 13:36:Flaco JANIE Arthur) Birthweight Baby A: 4540 (05/04/2020 13:36:Char Belllennce, RNC) 60a. Pounds : 10 (05/04/2020 13:36:QS system process) 60b. Ounces: 0 (05/04/2020 13:36:QS system process) 61. GA at Delivery Baby A: 39.1 (05/04/2020 13:36:Flaco Arthur RN) : Full Term- 39- 40.6 Weeks (05/04/2020 13:36:QS system process)
[2020-05-05] MEDS ORDERED: MORPHINE SULFATE 10 MG/ML INJ ONE (20:20)
[2020-05-05] MEDS ORDERED: MEPERIDINE HCL/PF INJ 25 MG/1 ML DISP.SYRIN ONE (21:22)
[2020-05-05] MEDS: OXYCODONE-ACETAMINOPHEN 5-325 MG TABLET PO PRN (23:09)
[2020-05-06] MEDS: KETOROLAC TROMETHAMINE INJ/PF 30 MG/1 ML SDV IV SCH ×2 (02:59→09:40)
[2020-05-06] MEDS: OXYCODONE-ACETAMINOPHEN 5-325 MG TABLET PO PRN ×4 (04:49→17:54)
[2020-05-06 06:12] LABS: HEMATOCRIT 24.2 % (36.0-47.0); MEAN CORPUSCULAR HEMOGLOBIN 23.6 pg (27.0-33.4); MEAN CORPUSCULAR HGB CONC 32.2 g/dL (32.0-36.0); MEAN CORPUSCULAR VOLUME 73 fl (80-97); PLATELET COUNT 220 10^3/uL (150-450); RED BLOOD COUNT 3.31 10^6/uL (3.72-5.28); RED CELL DISTRIBUTION WIDTH 18.1 % (11.5-14.0); WHITE BLOOD COUNT 9.3 10^3/uL (4.0-10.5)
[2020-05-06 06:15] LABS: HEMOGLOBIN 7.8 g/dL (12.0-15.5)
[2020-05-06] MEDS: RINGERS SOLUTION,LACTATED 1,000 ML IV PRN (08:22)
[2020-05-06] MEDS: ASCORBIC ACID 500 MG TABLET PO SCH ×2 (09:41→17:55)
[2020-05-06] MEDS: DOCUSATE SODIUM 100 MG CAPSULE PO SCH ×2 (09:41→17:54)
[2020-05-06] MEDS: PRENATAL VITAMIN W DHA CAPSULE PO SCH (09:42)
[2020-05-06] MEDS: FERROUS SULFATE 325 MG TABLET PO SCH ×2 (09:42→17:54)
--- NOTE | 2020-05-06 09:54 | PDOC PROGRESS REPORT ---
Subjective-OB Progress Note for:: 05/06/20 - POD #1, s/p Primary , 10 lb baby. pt doing well, UOB, voiding, no complaints of dizziness, O+, Rubella immune, bottlefeeding. Physical Exam (OB) Vital Signs: Temp Pulse Resp BP Pulse Ox 97.3 F 66 16 121/65 100 05/06/20 08:00 05/06/20 07:13 05/06/20 07:13 05/06/20 07:13 05/06/20 07:13 Intake & Output 05/05/20 05/06/20 05/07/20 06:59 06:59 06:59 Intake Total 1275 2550 Output Total 745 Balance 1275 2550 -745 Weight 105.6 kg - General General Appearance: Appears well, Alert In distress: None - PIH/Pre-Eclampsia DTR's: 2 + Clonus: Negative Headache: Absent Epigastric Pain: No Visual Changes: No - Dressing Removed: No Incision: Draining, Well Approximated Closure Type: Surgical Glue Note: Honeycomb dressing, small amount of blood present, has been marked w/ a pen to outline, appears stable - Maternal Morbidity 59. Maternal Morbidity (serious complications experinced by the mother associated with labor and delivery: None of the above - Lochia Lochia Amount: Scant < 10 ml Lochia Color: Rubra/Red - Abdomen Description: Soft Hernia Present: No Fundal Description: Firm, Midline Fundal Height: u/u - u/2 - Respiratory Respiratory Status: No respiratory distress Breath sounds: Clear - Cardiovascular Rhythm: Regular Heart Sounds: Normal auscultation - Abdominal Distension: No distension Tenderness: Nontender Abdominal Notes: +bowel sounds - Genitourinary Genitourinary Note: voiding - Extremities Upper extremity: Normal inspection Lower extremities: Normal inspection - Neurological Cognition: Normal Orientation: AAOx4 - Psychological Associated symptoms: Normal affect, Normal mood - Skin Skin Temperature: Warm Skin Moisture: Dry Objective-Diagnostic Laboratory: 05/06/20 05:45 05/06/20 05:45 WBC 9.3 RBC 3.31 L Hgb 7.8 L Hct 24.2 L MCV 73 L MCH 23.6 L MCHC 32.2 RDW 18.1 H Plt Count 220 Assessment and Plan(PN) - Assessment and Plan (1) Status post primary low transverse section Is this a current diagnosis for this admission?: Yes (2) Acute on chronic blood loss anemia Is this a current diagnosis for this admission?: Yes (3) Gestational diabetes mellitus, antepartum Qualifiers: Gestational diabetes mellitus control: diet-controlled Qualified Code(s): O24.410 - Gestational diabetes mellitus in , diet controlled Is this a current diagnosis for this admission?: Yes Plan:: Routine Post Op and Post orders, Ambulation encouraged. Will give IV iron infusion today - Time Spent with Patient Time with patient: Less than 15 minutes Medications reviewed and adjusted accordingly: Yes - Disposition Anticipated Discharge Disposition: Home, Self Care Anticipated Discharge Timeframe: within 48 hours
[2020-05-06] MEDS ORDERED: [UNRECOGNIZED DRUG - REMARK] PO SCH (10:00)
[2020-05-06] MEDS ORDERED: IRON SUCROSE COMPLEX INJ/PF 100 MG/5 ML SDV IV ONE (11:00)
[2020-05-06] MEDS: IBUPROFEN 800 MG TABLET PO SCH ×2 (17:55→23:48)
[2020-05-07] MEDS: IBUPROFEN 800 MG TABLET PO SCH ×3 (05:32→18:46)
[2020-05-07] MEDS: OXYCODONE-ACETAMINOPHEN 5-325 MG TABLET PO PRN ×2 (07:37→15:17)
[2020-05-07] MEDS: PRENATAL VITAMIN W DHA CAPSULE PO SCH (09:13)
[2020-05-07] MEDS: FERROUS SULFATE 325 MG TABLET PO SCH ×2 (09:13→18:46)
[2020-05-07] MEDS: DOCUSATE SODIUM 100 MG CAPSULE PO SCH ×2 (09:13→18:46)
[2020-05-07] MEDS: ASCORBIC ACID 500 MG TABLET PO SCH ×2 (09:13→18:46)
--- NOTE | 2020-05-07 11:43 | PDOC PROGRESS REPORT ---
Subjective-OB Progress Note for:: 05/07/20 Subjective: pt is doing well today, baby is going to stay another night due to jaundice, pt had a episode of dizziness this am when up and moving head, had IV iron yesterday and taking po iron, would rather not get blood transfusion, will repeat CBC today, bottle feeding, pain under control, ambulating Physical Exam (OB) Vital Signs: Temp Pulse Resp BP Pulse Ox 97.6 F 69 16 130/74 H 100 05/07/20 10:00 05/07/20 07:30 05/07/20 07:30 05/07/20 07:30 05/07/20 07:30 Intake & Output 05/06/20 05/07/20 05/08/20 06:59 06:59 06:59 Intake Total 2550 300 300 Output Total 1545 Balance 2550 -1245 300 - PIH/Pre-Eclampsia DTR's: 1 + Clonus: Negative Headache: Absent Epigastric Pain: No Visual Changes: No - Dressing Removed: No - opsite with small amount of shadow drainage. no active drainage present Incision: Draining Closure Type: Sutures - Maternal Morbidity 59. Maternal Morbidity (serious complications experinced by the mother associated with labor and delivery: None of the above - Lochia Lochia Amount: Small 10-25 ml Lochia Color: Rubra/Red - Abdomen Description: Soft, Round Hernia Present: No Fundal Description: Firm, Midline Fundal Height: u/u - u/2 Assessment and Plan(PN) - Assessment and Plan (1) Status post primary low transverse section Is this a current diagnosis for this admission?: Yes (2) Acute on chronic blood loss anemia Is this a current diagnosis for this admission?: Yes - Time Spent with Patient Time with patient: Less than 15 minutes Medications reviewed and adjusted accordingly: Yes - Disposition Anticipated Discharge Disposition: Home, Self Care Anticipated Discharge Timeframe: within 24 hours
[2020-05-07 11:48] LABS: HEMATOCRIT 23.6 % (36.0-47.0); MEAN CORPUSCULAR HEMOGLOBIN 23.9 pg (27.0-33.4); MEAN CORPUSCULAR HGB CONC 32.4 g/dL (32.0-36.0); MEAN CORPUSCULAR VOLUME 74 fl (80-97); PLATELET COUNT 261 10^3/uL (150-450); RED CELL DISTRIBUTION WIDTH 18.3 % (11.5-14.0); WHITE BLOOD COUNT 9.4 10^3/uL (4.0-10.5)
[2020-05-07 11:49] LABS: HEMOGLOBIN 7.6 g/dL (12.0-15.5)
[2020-05-07] MEDS ORDERED: IRON SUCROSE COMPLEX INJ/PF 100 MG/5 ML SDV IV ONE (13:00)
[2020-05-08] MEDS: IBUPROFEN 800 MG TABLET PO SCH ×2 (00:05→07:59)
[2020-05-08] MEDS: OXYCODONE-ACETAMINOPHEN 5-325 MG TABLET PO PRN (08:00)
--- NOTE | 2020-05-08 09:44 | PDOC DISCHARGE SUMMARY ---
Impression - Admit/DC Date/PCP Admission Date/Primary Care Provider: 05/04/20 17:53 THOMAS ESCALANTE MD Discharge Date: 05/08/20 - POD #3, pt UOB this morning, states feels much better today. S/p IV iron infusion x 2. Denies dizziness. s/p Primary of 10 pound baby after failed IOL. Hx GDM. O+, Rubella Immune, bottlefeeding - Discharge Diagnosis (1) Status post primary low transverse section Is this a current diagnosis for this admission?: Yes (2) Acute on chronic blood loss anemia Is this a current diagnosis for this admission?: Yes (3) Gestational diabetes mellitus, antepartum Is this a current diagnosis for this admission?: Yes - Additional Information Resuscitation Status: Full Code Discharge Diet: As Tolerated, Regular Discharge Activity: Activity As Tolerated, No Lifting Over 10 Pounds, No Lifting/Push/Pulling, Pelvic Rest Referrals: THOMAS ESCALANTE MD [Primary Care Provider] - (F/U [facility] 1 week) Prescriptions: Ferrous Sulfate [Feosol 325 mg Tablet] 325 mg PO BID #60 tablet Ibuprofen [Motrin 800 mg Tablet] 800 mg PO Q6 #30 tablet Oxycodone HCl/Acetaminophen [Percocet 5-325 mg Tablet] 1 tab PO Q4HP PRN #20 tablet PRN Reason: Home Medications: Pnv No.95/Ferrous Fum/Folic AC [ Vitamin Tablet] 1 tab PO DAILY 06/28/18 Ferrous Sulfate [Feosol 325 mg Tablet] 325 mg PO BID #60 tablet 05/07/20 Ibuprofen [Motrin 800 mg Tablet] 800 mg PO Q6 #30 tablet 05/07/20 Oxycodone HCl/Acetaminophen [Percocet 5-325 mg Tablet] 1 tab PO Q4HP PRN #20 tablet 05/07/20 HPI Reason(s) for Admission: Induction of Labor, Gestional Diabetes Intrapartum Procedure(s): : Low Cervical, Transverse Complication(s): Other - acute bloodloss anemia, iron transfusion x 2 Hospital Course 59. Maternal Morbidity (serious complications experinced by the mother associated with labor and delivery: None of the above Results Laboratory Results: WBC 9.4 10^3/uL (4.0-10.5) 05/07/20 11:34 RBC 3.20 10^6/uL (3.72-5.28) L 05/07/20 11:34 Hgb 7.6 g/dL (12.0-15.5) L 05/07/20 11:34 Hct 23.6 % (36.0-47.0) L 05/07/20 11:34 MCV 74 fl (80-97) L 05/07/20 11:34 MCH 23.9 pg (27.0-33.4) L 05/07/20 11:34 MCHC 32.4 g/dL (32.0-36.0) 05/07/20 11:34 RDW 18.3 % (11.5-14.0) H 05/07/20 11:34 Plt Count 261 10^3/uL (150-450) 05/07/20 11:34 Urine Color YELLOW 05/04/20 18:05 Urine Appearance CLOUDY 05/04/20 18:05 Urine pH 7.0 (5.0-9.0) 05/04/20 18:05 Ur Specific [place] 1.012 05/04/20 18:05 Urine Protein NEGATIVE mg/dL (NEGATIVE) 05/04/20 18:05 Urine Glucose (UA) NEGATIVE mg/dL (NEGATIVE) 05/04/20 18:05 Urine Ketones NEGATIVE mg/dL (NEGATIVE) 05/04/20 18:05 Urine Blood NEGATIVE (NEGATIVE) 05/04/20 18:05 Urine Nitrite NEGATIVE (NEGATIVE) 05/04/20 18:05 Urine Bilirubin NEGATIVE (NEGATIVE) 05/04/20 18:05 Urine Urobilinogen NEGATIVE mg/dL (<2.0) 05/04/20 18:05 Ur Leukocyte Esterase LARGE (NEGATIVE) H 05/04/20 18:05 Urine WBC (Auto) 64 /HPF 05/04/20 18:05 Urine RBC (Auto) 7 /HPF 05/04/20 18:05 Urine Bacteria (Auto) TRACE /HPF 05/04/20 18:05 Squamous Epi Cells Auto 16 /HPF 05/04/20 18:05 Urine Mucus (Auto) RARE /LPF 05/04/20 18:05 Urine Ascorbic Acid NEGATIVE (NEGATIVE) 05/04/20 18:05 Urine Opiates Screen NEGATIVE 05/04/20 18:05 Urine Methadone Screen NEGATIVE 05/04/20 18:05 Ur Barbiturates Screen NEGATIVE 05/04/20 18:05 Ur Phencyclidine Scrn NEGATIVE 05/04/20 18:05 Ur Amphetamines Screen NEGATIVE 05/04/20 18:05 U Benzodiazepines Scrn NEGATIVE 05/04/20 18:05 Urine Cocaine Screen NEGATIVE 05/04/20 18:05 U Marijuana (THC) Screen NEGATIVE 05/04/20 18:05 RPR NONREACTIVE (NONREACTIVE) 05/04/20 18:37 Blood Type O POSITIVE 05/04/20 18:37 Antibody Screen NEGATIVE 05/04/20 18:37 Plan Health Concerns: iron rich foods Plan of Treatment: d/c home. f/up with [facility] for incision check in one week Time Spent: Less than 30 Minutes
[2020-05-08 10:06] VITALS: BP 120/72
[2020-05-08] MEDS: ASCORBIC ACID 500 MG TABLET PO SCH (10:35)
[2020-05-08] MEDS: PRENATAL VITAMIN W DHA CAPSULE PO SCH (10:35)
[2020-05-08] MEDS: FERROUS SULFATE 325 MG TABLET PO SCH (10:35)
[2020-05-08] MEDS: DOCUSATE SODIUM 100 MG CAPSULE PO SCH (10:35)
== END 2020-05-08 11:23 | disposition home or self-care (01) | DRG 787 ==
LOC: LR 17:53 → 2S 05-05 21:37
PROVIDERS: ADMIT Obstetrics & Gynecology; ATTEND Obstetrics & Gynecology
PROC: 10D00Z1 Extraction of Products of Conception, Low, Open Approach (ICD-10-PCS; principal; 2020-05-05)
PROC: 10907ZC Drainage of Amniotic Fluid, Therapeutic from Products of Conception, Via Natural or Artificial Opening (ICD-10-PCS; 2020-05-05)
PROC: 3E033VJ Introduction of Other Hormone into Peripheral Vein, Percutaneous Approach (ICD-10-PCS; 2020-05-05)
DX: O24.420 Gestational diabetes mellitus in childbirth, diet controlled (principal); D62 Acute posthemorrhagic anemia; O36.63X0 Maternal care for excessive fetal growth, third trimester, not applicable or unspecified; Z20.822 Contact with and (suspected) exposure to COVID-19; O90.81 Anemia of the puerperium; O61.0 Failed medical induction of labor; O62.4 Hypertonic, incoordinate, and prolonged uterine contractions; O76 Abnormality in fetal heart rate and rhythm complicating labor and delivery; Z88.2 Allergy status to sulfonamides; Z3A.39 39 weeks gestation of pregnancy; Z37.0 Single live birth
CPT/HCPCS: 1961; 36415; 80307; 81001; 85027; 86592; 86850; 86900; 86901; 94760; 94799; J0131; J0690; J1756; J1885; J2175; J2250; J2270; J2370; J2405; J2550; J2590; J3010; J3490; J7120